=== PATIENT | female | born 1945 | race Caucasian/White ===

== ENCOUNTER 2021-10-21 08:31 | Emergency (ER) | payer MEDICARE ==
[2021-10-21 10:05] LABS: HEMOGLOBIN 13.6 gm/dl (12.3-15.3); RED BLOOD COUNT 4.36 M/UL (4.00-5.10); WHITE BLOOD COUNT 7.6 K/UL (4.5-11.0)
[2021-10-21 10:50] LABS: BUN/CREATININE RATIO 20 (0-10)
== END 2021-10-21 13:57 | disposition home or self-care (01) ==
LOC: ER1 08:31
PROVIDERS: Physician Assistant Medical
DX: R07.89 Other chest pain (principal); I10 Essential (primary) hypertension; Z88.5 Allergy status to narcotic agent; Z85.3 Personal history of malignant neoplasm of breast
CPT/HCPCS: 71045; 80053; 82550; 82553; 84439; 84443; 84484; 85025; 85652; 86140; 93005; 99285

== ENCOUNTER → 2021-11-02 | Day surgery (SDC) | payer MEDICARE, OTHER ==
[~2021-11-02] MED LIST: DAILY VALUE1 EACH PO; LEVOTHYROXINE25 MCG PO; LOW DOSE ASPIRI81 MG PO; NORVASC5 MG PO; PREDNISONE10 MG PO; ULTRAM50 MG PO; VITAMIN D PO
== END | disposition home or self-care (01) ==
LOC: OR 06:48
DX: I65.22 Occlusion and stenosis of left carotid artery (principal); Z88.5 Allergy status to narcotic agent
CPT/HCPCS: J0690; J1100; J2001; J2405; J2704; J3010; J7120